=== PATIENT | male | born 1995 | race African-American/Black ===

== ENCOUNTER 2021-08-12 18:39 | Inpatient (IN) ==
[2021-08-12] MEDS ORDERED: Al Hydrox/Mg Hydrox/Simet LIQ 30 ML UDC PO PRN (22:54)
[2021-08-13 08:40] LABS: HDL Cholesterol 43.2 mg/dL
[2021-08-13 09:56] LABS: ABS Lymphocytes 2.1 10^3/ul (1.0-4.8); ABS Monocytes 1.2 10^3/ul (0-0.8); ABS Neutrophils 4.7 10^3/ul (1.5-7.7); Eosinophil % 0.3 %; Hematocrit 49 % (42-52); Hemoglobin 16.6 g/dL (14.0-18.0); Lymphocyte % 26.4 %; Mean Corpuscular HGB Conc 34 g/dL (31-36); Mean Corpuscular Hemoglobin 33 pg (27-31); Mean Corpuscular Volume 98 fL (80-94); Mean Platelet Volume 9.2 fL (7.4-10.4); Nucleated Red Blood Cells % 0.2; Platelet Count 140 10^3/uL (150-450); Red Blood Count 4.98 10^6 /uL (4.18-5.48); Red Cell Distribution Width 13 % (10-15)
[2021-08-13 10:17] LABS: Albumin 4.6 g/dL (3.2-5.2); Albumin/Globulin Ratio 1.4 (1-3); Calcium 9.8 mg/dL (8.6-10.3); Globulin 3.3 g/dL (2-4); Potassium 3.7 mmol/L (3.5-5.0); Total Bilirubin 1.3 mg/dL (0.2-1.0); Total Protein 7.9 g/dL (6.4-8.9); eGFR CKD-EPI 104.6 (>60)
[2021-08-13 10:31] LABS: TSH Ultra Thyroid Stim Horm 1.28 mcIU/mL (0.34-5.60)
[2021-08-13] MEDS: Vitamin THERAPEUTIC TAB PO SCH (11:27)
[2021-08-14] MEDS: Vitamin THERAPEUTIC TAB PO SCH (09:34)
[2021-08-14 11:45] LABS: Direct Bilirubin 0.2 mg/dL (0.03-0.18); Indirect Bilirubin 1.1 mg/dL (0.3-1.0)
[2021-08-14 13:53] LABS: ABS Monocytes 1.2 10^3/ul (0-0.8); Eosinophil % 0.3 %; Hematocrit 50 % (42-52); Hemoglobin 16.7 g/dL (14.0-18.0); Lymphocyte % 17.6 %; Mean Corpuscular HGB Conc 34 g/dL (31-36); Mean Corpuscular Hemoglobin 34 pg (27-31); Mean Corpuscular Volume 100 fL (80-94); Mean Platelet Volume 8.6 fL (7.4-10.4); Nucleated Red Blood Cells % 0.1; Platelet Count 148 10^3/uL (150-450); Red Blood Count 4.99 10^6 /uL (4.18-5.48); Red Cell Distribution Width 12 % (10-15); White Blood Count 11.3 10^3/uL (3.5-10.8)
[2021-08-14 15:04] LABS: Direct Bilirubin 0.1 mg/dL (0.03-0.18); Indirect Bilirubin 0.6 mg/dL (0.3-1.0); Total Bilirubin 0.7 mg/dL (0.2-1.0)
[2021-08-15] MEDS: Vitamin THERAPEUTIC TAB PO SCH (10:40)
[2021-08-16] MEDS: Vitamin THERAPEUTIC TAB PO SCH (08:28)
[2021-08-17] MEDS: Vitamin THERAPEUTIC TAB PO SCH (08:49)
[2021-08-18] MEDS: Vitamin THERAPEUTIC TAB PO SCH (09:00)
[2021-08-19] MEDS: Vitamin THERAPEUTIC TAB PO SCH (08:53)
[2021-08-20] MEDS: Vitamin THERAPEUTIC TAB PO SCH (09:05)
[2021-08-21 08:24] VITALS: BP 150/89
[2021-08-21] MEDS: Vitamin THERAPEUTIC TAB PO SCH (08:30)
== END 2021-08-21 08:33 | disposition home or self-care (01) | DRG 754 ==
LOC: ED 18:39 → EDHOLD 21:35 → BSU 23:15
PROVIDERS: ADMIT Psychiatry & Neurology Psychiatry; ATTEND Psychiatry & Neurology Psychiatry